=== PATIENT | female | born 1980 | race Caucasian/White ===

== ENCOUNTER 2016-06-14 19:28 | Emergency (ER) | payer OTHER ==
[~2016-06-14] VITALS: Ht 167.6 cm; Wt 59.0 kg
[~2016-06-14 19:28] MED LIST: NOCURR
[2016-06-14] MEDS ORDERED: METHOCARBAMOL 500 MG TABLET PO ONE (20:15)
[2016-06-14] MEDS ORDERED: KETOROLAC TROMETHAMINE 60 MG/2 ML VIAL IM ONE (20:15)
[2016-06-14 20:26] LABS: APPEARANCE,URINE CLOUDY (CLEAR); GLUCOSE, URINE (UA) NEGATIVE (NEGATIVE); KETONES,URINE NEGATIVE (NEGATIVE); LEUKOCYTE ESTERASE ,URINE MODERATE (NEGATIVE); OCCULT BLOOD,URINE NEGATIVE (NEGATIVE); PH,URINE 5.5 (5.0-8.0); PROTEIN,URINE NEGATIVE (NEGATIVE)
[2016-06-14 20:33] LABS: ADD UA MICROSCOPIC YES; RBC,URINE 0-2 /HPF (0-2); SQUAMOUS EPITHELIAL CELL,UR Few /LPF (None Seen); WBC,URINE 26-50 /HPF (0-5)
[2016-06-14 20:53] VITALS: BP 111/66
== END 2016-06-14 21:19 | disposition home or self-care (01) ==
LOC: EMS 19:33
DX: S39.012A Strain of muscle, fascia and tendon of lower back, initial encounter (principal); X58.XXXA Exposure to other specified factors, initial encounter; Y93.E9 Activity, other interior property and clothing maintenance; Y92.098 Other place in other non-institutional residence as the place of occurrence of the external cause; Y99.8 Other external cause status
CPT/HCPCS: 81001; 84703; 87077; 87086; 96372; 99284; J1885

== ENCOUNTER 2016-10-17 11:42 | Emergency (ER) | payer OTHER ==
[~2016-10-17] VITALS: Ht 165.1 cm; Wt 66.0 kg
[2016-10-17 13:51] LABS: ANION GAP 10 mmol/L (8-16); CALCIUM, TOTAL 8.9 mg/dL (8.8-10.5); CARBON DIOXIDE 25 mmol/L (22-29); CHLORIDE 105 mmol/L (98-107); CREATININE 0.96 mg/dL (0.60-1.30); GLOMERULAR FILTR. RATE CALC > 60 mL/min (>60); SODIUM SERUM 140 mmol/L (136-145); UREA NITROGEN, BLOOD 8 mg/dL (7-18)
[2016-10-17 13:54] LABS: BASOPHILS # (AUTO) 0.12 K/uL (0.00-0.20); BASOPHILS % (AUTO) 1.3 % (0.0-2.0); EOSINOPHILS # (AUTO) 0.18 K/uL (0.00-0.70); EOSINOPHILS % (AUTO) 1.81 % (1.0-6.0); HEMATOCRIT 39.1 % (36-46); HEMOGLOBIN 13.2 g/dL (12.0-16.0); LYMPHOCYTES # (AUTO) 2.4 K/uL (1.0-4.8); LYMPHOCYTES % (AUTO) 24.2 % (22.0-44.0); MEAN CORPUSCULAR HEMOGLOBIN 30.5 pg (26.0-34.0); MEAN CORPUSCULAR HGB CONC 33.7 G/dL (31.0-37.0); MEAN CORPUSCULAR VOLUME 90 fL (80-100); MONOCYTES # (AUTO) 0.6 K/uL (0.1-1.0); MONOCYTES % (AUTO) 5.9 % (2.0-9.0); NEUTROPHILS # (AUTO) 6.6 K/uL (1.8-7.7); NEUTROPHILS % (AUTO) 66.8 % (40.0-70.0); PLATELET COUNT (AUTO) 202 K/uL (150-450); RED BLOOD CELL COUNT(AUTO) 4.33 MIL/uL (4.00-5.20); RED CELL DISTRIBUTION WIDTH 13.3 % (11.5-14.5); WHITE BLOOD COUNT (AUTO) 9.9 K/uL (4.5-11.0)
[2016-10-17 13:58] LABS: ALANINE AMINOTRANSFERASE 29 U/L (12-78); ALBUMIN 3.9 g/dL (3.4-5.0); ASPARTATE AMINOTRANSFERASE 18 U/L (15-37); BILIRUBIN,TOTAL 0.8 mg/dL (0.1-1.0); TOTAL PROTEIN, SERUM 7.2 g/dL (6.4-8.2)
[2016-10-17 14:24] LABS: ADD UA MICROSCOPIC NO; APPEARANCE,URINE CLEAR (CLEAR); GLUCOSE, URINE (UA) NEGATIVE (NEGATIVE); KETONES,URINE NEGATIVE (NEGATIVE); LEUKOCYTE ESTERASE ,URINE NEGATIVE (NEGATIVE); OCCULT BLOOD,URINE NEGATIVE (NEGATIVE); PROTEIN,URINE NEGATIVE (NEGATIVE)
[2016-10-17] MEDS ORDERED: ONDANSETRON HCL 4 MG/2 ML VIAL IVP ONE (14:45)
[2016-10-17] MEDS ORDERED: SODIUM CHLORIDE 0.9% 1,000 ML IV ONE (14:45)
[2016-10-17] MEDS ORDERED: BISMUTH SUBSALICYLATE 524 MG/30 ML SUSPENSION UDCUP PO ONE (14:45)
[2016-10-17] MEDS ORDERED: ONDANSETRON HCL 4 MG TABLET PO ONE (15:00)
[2016-10-17 15:12] VITALS: BP 114/73
== END 2016-10-17 15:14 | disposition home or self-care (01) ==
LOC: EMS 11:44
DX: R10.13 Epigastric pain (principal); R11.0 Nausea; R19.7 Diarrhea, unspecified
CPT/HCPCS: 36415; 80053; 81003; 83690; 84703; 85025; 99284; Q0162; J2405; J7030

== ENCOUNTER 2019-02-02 09:50 | Emergency (ER) | payer OTHER ==
[~2019-02-02] VITALS: Ht 162.6 cm; Wt 75.0 kg
[2019-02-02] MEDS ORDERED: mirena IUTER (09:59)
[2019-02-02] MEDS ORDERED: SODIUM CHLORIDE 0.9% 1,000 ML IV ONE (10:45)
[2019-02-02] MEDS ORDERED: ONDANSETRON HCL 4 MG/2 ML VIAL IVP ONE (10:45)
[2019-02-02 11:05] LABS: BASOPHILS % (AUTO) 1.3 % (0.0-2.0); EOSINOPHILS % (AUTO) 2.7 % (1.0-6.0); HEMATOCRIT 42.7 % (36-46); HEMOGLOBIN 14.2 g/dL (12.0-16.0); LYMPHOCYTES # (AUTO) 1.6 K/uL (1.0-4.8); LYMPHOCYTES % (AUTO) 33.4 % (22.0-44.0); MEAN CORPUSCULAR HEMOGLOBIN 29.6 pg (26.0-34.0); MEAN CORPUSCULAR HGB CONC 33.3 G/dL (31.0-37.0); MEAN CORPUSCULAR VOLUME 89 fL (80-100); MONOCYTES # (AUTO) 0.6 K/uL (0.1-1.0); MONOCYTES % (AUTO) 12.5 % (2.0-9.0); NEUTROPHILS # (AUTO) 2.3 K/uL (1.8-7.7); NEUTROPHILS % (AUTO) 50.1 % (40.0-70.0); PLATELET COUNT (AUTO) 159 K/uL (150-450); RED BLOOD CELL COUNT(AUTO) 4.79 MIL/uL (4.00-5.20); RED CELL DISTRIBUTION WIDTH 13.2 % (11.5-14.5)
[2019-02-02 11:16] LABS: ANION GAP 8 mmol/L (8-16); CALCIUM, TOTAL 8.7 mg/dL (8.8-10.5); CARBON DIOXIDE 29 mmol/L (22-29); CHLORIDE 102 mmol/L (98-107); CREATININE 1.04 mg/dL (0.60-1.30); GLOMERULAR FILTR. RATE CALC 59 mL/min (>60); GLUCOSE,RANDOM 86 mg/dL (70-110); POTASSIUM 3.7 mmol/L (3.5-5.1); SODIUM SERUM 139 mmol/L (136-145); UREA NITROGEN, BLOOD 7 mg/dL (7-18)
[2019-02-02 11:27] LABS: ALANINE AMINOTRANSFERASE 40 U/L (12-78); ALKALINE PHOSPHATASE 97 U/L (46-116); ASPARTATE AMINOTRANSFERASE 23 U/L (15-37); BILIRUBIN,TOTAL 0.5 mg/dL (0.1-1.0); HCG,QUANTITATIVE < 1 mIU/mL (0-6); LIPASE 147 U/L (73-393); TOTAL PROTEIN, SERUM 7.6 g/dL (6.4-8.2)
[2019-02-02 11:53] LABS: PLATELET MORPHOLOGY COMMENT GIANT PLTS PRESENT
[2019-02-02 11:57] LABS: APPEARANCE,URINE CLOUDY (CLEAR); BILIRUBIN,URINE NEGATIVE (NEGATIVE); GLUCOSE, URINE (UA) NEGATIVE (NEGATIVE); KETONES,URINE TRACE mg/dL (NEGATIVE); NITRATE,URINE POSITIVE (NEGATIVE); PH,URINE 7.5 (5.0-8.0); PROTEIN,URINE TRACE (NEGATIVE)
[2019-02-02 12:07] LABS: LEUKOCYTE ESTERASE ,URINE MODERATE (NEGATIVE)
[2019-02-02 12:08] LABS: BACTERIA,URINE Many /HPF (None Seen); OCCULT BLOOD,URINE SMALL (NEGATIVE); SQUAMOUS EPITHELIAL CELL,UR Many /LPF (None Seen); WBC,URINE 26-50 /HPF (0-5)
[2019-02-02] MEDS ORDERED: PANTOPRAZOLE SODIUM 40 MG/VIAL IVP ONE (12:30)
[2019-02-02] MEDS ORDERED: CefTRIAXone 1 GM/DEXTROSE 50 ML IV ONE (12:30)
[2019-02-02 14:06] VITALS: BP 108/63
== END 2019-02-02 14:07 | disposition home or self-care (01) ==
LOC: EMS 09:51
DX: K29.70 Gastritis, unspecified, without bleeding (principal); N39.0 Urinary tract infection, site not specified; R11.10 Vomiting, unspecified
CPT/HCPCS: 36415; 76700; 80053; 81001; 83690; 84702; 85025; 87077; 87086; 87186; 93005; 96361; 96365; 96375; 99284; C9113; J0696; J2405; J7030

== ENCOUNTER 2022-03-21 18:02 | Emergency (ER) | payer OTHER ==
[~2022-03-21] VITALS: Ht 160 cm; Wt 70.5 kg
[~2022-03-21 18:02] MED LIST changes: -NOCURR; +mirena IUTER
[2022-03-21] MEDS ORDERED: SODIUM CHLORIDE 0.9% 1,000 ML IV ONE (20:15)
[2022-03-21 20:30] LABS: BASOPHILS % (AUTO) 0.4 % (0.0-2.0); HEMATOCRIT 40.4 % (36-46); HEMOGLOBIN 13.2 g/dL (12.0-16.0); LYMPHOCYTES # (AUTO) 2.2 K/uL (1.0-4.8); LYMPHOCYTES % (AUTO) 30.2 % (22.0-44.0); MEAN CORPUSCULAR HEMOGLOBIN 29.7 pg (26.0-34.0); MEAN CORPUSCULAR HGB CONC 32.8 G/dL (31.0-37.0); MEAN CORPUSCULAR VOLUME 91 fL (80-100); MONOCYTES # (AUTO) 0.5 K/uL (0.1-1.0); MONOCYTES % (AUTO) 6.7 % (2.0-9.0); NEUTROPHILS # (AUTO) 4.2 K/uL (1.8-7.7); NEUTROPHILS % (AUTO) 57.7 % (40.0-70.0); PLATELET COUNT (AUTO) 249 K/uL (150-450); RED BLOOD CELL COUNT(AUTO) 4.45 MIL/uL (4.00-5.20); RED CELL DISTRIBUTION WIDTH 13.6 % (11.5-14.5)
[2022-03-21] MEDS ORDERED: FAMOTIDINE 40 MG in SODIUM CHLORIDE 0.9% 100 ML IV ONE (20:45)
[2022-03-21 20:47] LABS: ANION GAP 7 mmol/L (8-16); CALCIUM, TOTAL 9.3 mg/dL (8.8-10.5); CARBON DIOXIDE 28 mmol/L (22-29); CHLORIDE 103 mmol/L (98-107); CREATININE 0.97 mg/dL (0.60-1.30); GLOMERULAR FILTR. RATE CALC > 60 mL/min (>60); GLUCOSE,RANDOM 90 mg/dL (70-110); POTASSIUM 4.3 mmol/L (3.5-5.1); SODIUM SERUM 138 mmol/L (136-145); UREA NITROGEN, BLOOD 9 mg/dL (7-18)
[2022-03-21 21:32] LABS: ALANINE AMINOTRANSFERASE 28 U/L (12-78); ALBUMIN 3.8 g/dL (3.4-5.0); ALKALINE PHOSPHATASE 87 U/L (46-116); ASPARTATE AMINOTRANSFERASE 24 U/L (15-37); BILIRUBIN,TOTAL 0.4 mg/dL (0.1-1.0); HCG,QUANTITATIVE < 1 mIU/mL (0-6); LIPASE 80 U/L (73-393); TOTAL PROTEIN, SERUM 7.3 g/dL (6.4-8.2)
[2022-03-21 23:47] LABS: APPEARANCE,URINE CLEAR (CLEAR); BILIRUBIN,URINE NEGATIVE (NEGATIVE); GLUCOSE, URINE (UA) NEGATIVE (NEGATIVE); LEUKOCYTE ESTERASE ,URINE SMALL (NEGATIVE); NITRATE,URINE NEGATIVE (NEGATIVE); OCCULT BLOOD,URINE NEGATIVE (NEGATIVE); PH,URINE 6.5 (5.0-8.0); PROTEIN,URINE NEGATIVE (NEGATIVE); SPECIFIC GRAVITIY, URINE 1.009 (1.003-1.030); UROBILINOGEN,URINE <=1.0 mg/dL (<=1.0)
[2022-03-21 23:55] LABS: BACTERIA,URINE None Seen /HPF (None Seen); RBC,URINE None Seen /HPF (0-2); SQUAMOUS EPITHELIAL CELL,UR Moderate /LPF (None Seen)
[2022-03-22] MEDS ORDERED: ONDA-104 PO (03:05)
[2022-03-22 03:30] VITALS: BP 129/65
== END 2022-03-22 03:53 | disposition home or self-care (01) ==
LOC: EMS 18:03
DX: R10.13 Epigastric pain (principal); K29.70 Gastritis, unspecified, without bleeding
CPT/HCPCS: 99285; 96365; 96361; 76705; 80053; 81001; 83690; 84702; 85025; 36415; J3490; J7030; J7050

== ENCOUNTER 2024-12-15 16:24 | Inpatient (IN) | payer OTHER ==
[~2024-12-15] VITALS: Ht 165.1 cm; Wt 79.4 kg
[~2024-12-15 16:24] MED LIST changes: +ONDA-104 PO; -mirena IUTER
[2024-12-15] MEDS ORDERED: CALCIUM GLUCONATE 0.465 MEQ/ML 10 ML VIAL ONE (16:51)
[2024-12-15 16:55] LABS: PLATELET COUNT (AUTO) 227 K/uL (150-450); RED BLOOD CELL COUNT(AUTO) 4.71 MIL/uL (4.00-5.20); RED CELL DISTRIBUTION WIDTH 13.5 % (11.5-14.5); WHITE BLOOD COUNT (AUTO) 14.3 K/uL (4.5-11.0)
[2024-12-15 16:57] LABS: CALCIUM, TOTAL 9.0 mg/dL (8.8-10.5); CREATININE 1.09 mg/dL (0.60-1.30); GLOMERULAR FILTR. RATE CALC 54 mL/min (>60); GLUCOSE,RANDOM 96 mg/dL (70-110); SODIUM SERUM 141 mmol/L (136-145); UREA NITROGEN, BLOOD 12 mg/dL (7-18)
[2024-12-15] MEDS: CALCIUM GLUCONATE 100 MG/ML 10 ML IVP ONE (16:58)
[2024-12-15] MEDS: SODIUM CHLORIDE 0.9% 1,000 ML IV ONE (16:58)
[2024-12-15] MEDS: DILTIAZEM HCL 5 MG/ML 5 ML VIAL IVP ONE (16:59)
[2024-12-15] MEDS: ONDANSETRON HCL 4 MG/2 ML VIAL IVP ONE (16:59)
[2024-12-15 17:01] LABS: ALCOHOL, BLOOD (SERUM) < 3 mg/dL (0-10)
[2024-12-15 17:03] LABS: ASPARTATE AMINOTRANSFERASE 22 U/L (15-37); TOTAL PROTEIN, SERUM 7.5 g/dL (6.4-8.2)
[2024-12-15 17:08] LABS: TROPONIN I-HIGH SENSITIVITY 11 ng/L (<51)
[2024-12-15] MEDS ORDERED: DIGOXIN 250 MCG/ML 2 ML AMP ONE (17:28)
[2024-12-15] MEDS ORDERED: METOPROLOL TARTRATE 5 MG/5 ML VIAL ONE (17:28)
[2024-12-15] MEDS: DIGOXIN 250 MCG/ML 2 ML AMP IVP ONE (17:33)
[2024-12-15] MEDS: METOPROLOL TARTRATE 5 MG/5 ML VIAL IVP ONE (17:33)
[2024-12-15] MEDS: ASPIRIN 325 MG TABLET PO ONE (19:26)
[2024-12-15] MEDS ORDERED: ACETAMINOPHEN 325 MG TABLET PO PRN (19:45)
[2024-12-15] MEDS ORDERED: AMIODARONE HCL 150 MG in DEXTROSE 5%-WATER 97 ML IV ONE (19:45)
[2024-12-15] MEDS ORDERED: IPRATROPIUM BROMIDE 0.5 MG/2.5 ML NEB SOLUTION NEB PRN (19:45)
[2024-12-15] MEDS ORDERED: AMIODARONE HCL 360 MG in DEXTROSE 5%-WATER 242.8 ML IV ONE (19:45)
[2024-12-15] MEDS ORDERED: ALBUTEROL SULFATE 2.5 MG/0.5 ML NEB SOLUTION NEB PRN (19:45)
[2024-12-15 20:21] LABS: LACTIC ACID 2.7 mmol/L (0.4-2.0)
[2024-12-15] MEDS: MAGNESIUM SULFATE 2 GM/WATER 50 ML IV ONE (20:29)
[2024-12-15] MEDS: AMIODARONE HCL 150 MG in DEXTROSE 5%-WATER 97 ML IV ONE (20:29)
[2024-12-15 20:31] LABS: TROPONIN I-HIGH SENSITIVITY 57 ng/L (<51)
[2024-12-15] MEDS: AMIODARONE HCL 360 MG in DEXTROSE 5%-WATER 242.8 ML IV ONE (20:39)
[2024-12-15] MEDS: MAGNESIUM SULFATE 2 GM, MVI, ADULT NO.1 WITH VIT K 10 ML, THIAMINE 100 MG, FOLIC ACID 1... IV SCH (20:40)
[2024-12-15 22:00] VITALS: BP 89/59; PULSE 87; RESP 18; TEMP 98.5; O2SAT 95
[2024-12-15] MEDS: RINGERS SOLUTION,LACTATED 500 ML IV ONE (22:14)
[2024-12-15] MEDS: DOCUSATE SODIUM 100 MG CAPSULE PO SCH (22:15)
[2024-12-15] MEDS: CHLORHEXIDINE GLUCONATE 2% TOWELETTE [2'S/6'S] TP SCH (22:15)
[2024-12-16] MEDS: HEPARIN SODIUM,PORCINE 5,000 UNITS/ML VIAL SQ SCH
[2024-12-16] MEDS ORDERED: AMIODARONE HCL 540 MG in DEXTROSE 5%-WATER 250 ML IV ONE (01:15)
[2024-12-16] MEDS: AMIODARONE HCL 540 MG in DEXTROSE 5%-WATER 250 ML IV ONE (02:09)
[2024-12-16 04:23] LABS: PH,URINE DRUG SCREEN 6.0 (5.0-8.0)
[2024-12-16 04:38] LABS: AMPHET/METH SCREEN,URINE NEGATIVE (NEGATIVE); BARBITURATE SCREEN, URINE NEGATIVE (NEGATIVE); CANNABINOID SCREEN,URINE NEGATIVE (NEGATIVE); COCAINE SCREEN,URINE NEGATIVE (NEGATIVE); METHADONE SCREEN, URINE NEGATIVE (NEGATIVE)
[2024-12-16 04:39] LABS: ALCOHOL, URINE DRUG SCREEN NEGATIVE (NEGATIVE)
[2024-12-16 05:30] VITALS: BP 89/68; PULSE 92; RESP 18; TEMP 98.4; O2SAT 95
[2024-12-16] MEDS: ASPIRIN 81 MG CHEWABLE TABLET PO ONE (05:39)
[2024-12-16] MEDS: RINGERS SOLUTION,LACTATED 500 ML IV ONE (05:43)
[2024-12-16 06:36] LABS: PLATELET COUNT (AUTO) 176 K/uL (150-450); RED BLOOD CELL COUNT(AUTO) 3.93 MIL/uL (4.00-5.20); RED CELL DISTRIBUTION WIDTH 13.2 % (11.5-14.5); WHITE BLOOD COUNT (AUTO) 10.5 K/uL (4.5-11.0)
[2024-12-16 06:47] LABS: CALCIUM, TOTAL 7.9 mg/dL (8.8-10.5); CREATININE 0.93 mg/dL (0.60-1.30); GLOMERULAR FILTR. RATE CALC > 60 mL/min (>60); GLUCOSE,RANDOM 81 mg/dL (70-110); SODIUM SERUM 137 mmol/L (136-145); UREA NITROGEN, BLOOD 13 mg/dL (7-18)
[2024-12-16 06:54] LABS: TROPONIN I-HIGH SENSITIVITY 67 ng/L (<51)
[2024-12-16 08:10] VITALS: BP 98/68; PULSE 66; RESP 18; TEMP 98.1; O2SAT 96
[2024-12-16 11:38] VITALS: BP 98/77; PULSE 104; RESP 19; TEMP 97.9; O2SAT 98
[2024-12-16 15:53] VITALS: BP 103/82; PULSE 78; RESP 18; TEMP 98.1; O2SAT 96
[2024-12-16] MEDS: DIGOXIN 250 MCG/ML 2 ML AMP IVP SCH (17:53)
[2024-12-16 18:32] LABS: APPEARANCE,URINE CLEAR (CLEAR); GLUCOSE, URINE (UA) NEGATIVE (NEGATIVE); LEUKOCYTE ESTERASE ,URINE NEGATIVE (NEGATIVE); NITRATE,URINE NEGATIVE (NEGATIVE); OCCULT BLOOD,URINE NEGATIVE (NEGATIVE); SPECIFIC GRAVITIY, URINE 1.009 (1.003-1.030)
[2024-12-16] MEDS ORDERED: AMIODARONE HCL 750 MG in DEXTROSE 5%-WATER 485 ML IV SCH (19:15)
[2024-12-16] MEDS: AMIODARONE HCL 750 MG in DEXTROSE 5%-WATER 485 ML IV SCH (20:14)
[2024-12-16 20:21] VITALS: BP 113/77; PULSE 78; RESP 18; TEMP 98.1; O2SAT 97
[2024-12-17] VITALS (12 sets, daily range): BP systolic 91–109; BP diastolic 51–74; PULSE 69–84; RESP 16–18; TEMP 97.8–98.4; O2SAT 95–98
[2024-12-17 06:07] LABS: PLATELET COUNT (AUTO) 159 K/uL (150-450); RED BLOOD CELL COUNT(AUTO) 3.93 MIL/uL (4.00-5.20); RED CELL DISTRIBUTION WIDTH 13.2 % (11.5-14.5); WHITE BLOOD COUNT (AUTO) 10.3 K/uL (4.5-11.0)
[2024-12-17 06:26] LABS: CALCIUM, TOTAL 8.0 mg/dL (8.8-10.5); CREATININE 0.89 mg/dL (0.60-1.30); GLOMERULAR FILTR. RATE CALC > 60 mL/min (>60); GLUCOSE,RANDOM 92 mg/dL (70-110); SODIUM SERUM 135 mmol/L (136-145); UREA NITROGEN, BLOOD 6 mg/dL (7-18)
[2024-12-17] MEDS ORDERED: ASPIRIN 81 MG CHEWABLE TABLET PO SCH (08:00)
[2024-12-17] MEDS: ASPIRIN 81 MG CHEWABLE TABLET PO SCH ×2 (08:00→09:05)
[2024-12-17] MEDS: ONDANSETRON HCL 4 MG/2 ML VIAL IVP PRN (16:18)
[2024-12-17] MEDS: METOPROLOL SUCCINATE 25 MG ER TABLET PO SCH (16:23)
[2024-12-17] MEDS ORDERED: DIGOXIN 250 MCG/ML 2 ML AMP IVP SCH (18:00)
[2024-12-18 03:19] VITALS: BP 99/60; PULSE 75; RESP 18; TEMP 98.2; O2SAT 97
[2024-12-18] MEDS: RINGERS SOLUTION,LACTATED 500 ML IV ONE (03:57)
[2024-12-18 07:08] VITALS: BP 100/56; PULSE 74; RESP 18; TEMP 98; O2SAT 97
[2024-12-18] MEDS ORDERED: ASPI-1450 PO (07:23)
[2024-12-18] MEDS ORDERED: METO25XL PO (07:23)
[2024-12-18 07:48] LABS: PLATELET COUNT (AUTO) 191 K/uL (150-450); RED BLOOD CELL COUNT(AUTO) 4.28 MIL/uL (4.00-5.20); RED CELL DISTRIBUTION WIDTH 13.3 % (11.5-14.5); WHITE BLOOD COUNT (AUTO) 10.0 K/uL (4.5-11.0)
[2024-12-18 08:00] VITALS: BP 99/66; PULSE 73
[2024-12-18 08:03] VITALS: BP 97/62; PULSE 65
[2024-12-18 08:04] LABS: CALCIUM, TOTAL 8.1 mg/dL (8.8-10.5); CREATININE 0.77 mg/dL (0.60-1.30); GLOMERULAR FILTR. RATE CALC > 60 mL/min (>60); GLUCOSE,RANDOM 87 mg/dL (70-110); SODIUM SERUM 138 mmol/L (136-145); UREA NITROGEN, BLOOD 4 mg/dL (7-18)
[2024-12-18 08:05] VITALS: BP 105/65; PULSE 62
[2024-12-18 08:09] LABS: ASPARTATE AMINOTRANSFERASE 16 U/L (15-37); TOTAL PROTEIN, SERUM 6.0 g/dL (6.4-8.2)
[2024-12-18 12:05] VITALS: BP 102/64; PULSE 64; RESP 15; TEMP 97.6; O2SAT 96
== END 2024-12-18 12:30 | disposition home or self-care (01) | DRG 201 ==
LOC: EMS 16:24 → EDH 19:35 → 5N 21:34
PROVIDERS: ADMIT Internal Medicine; ATTEND Internal Medicine
DX: I48.91 Unspecified atrial fibrillation (principal); I50.31 Acute diastolic (congestive) heart failure; I21.A1 Myocardial infarction type 2; R65.11 Systemic inflammatory response syndrome (SIRS) of non-infectious origin with acute organ dysfunction; D72.829 Elevated white blood cell count, unspecified; Z87.59 Personal history of other complications of pregnancy, childbirth and the puerperium; R42 Dizziness and giddiness; R06.82 Tachypnea, not elsewhere classified; I95.1 Orthostatic hypotension
CPT/HCPCS: 71045; 80048; 80053; 80076; 80307; 81003; 83605; 83735; 83880; 84443; 84484; 84703; 85025; 85379; 93005; 93306; 96365; 96368; 96375; 99291; G0480; J0282; J0610; J1160; J1644; J2405; J3411; J3475; J3490; J7030; J7060; J7120; 36415-L1; 36415-TC